=== PATIENT | male | born 1950 | race Hispanic/Latino ===

== ENCOUNTER 2023-12-24 14:17 | Emergency (ER) | payer OTHER ==
[~2023-12-24] VITALS: Ht 172.7 cm; Wt 68.0 kg
[~2023-12-24 14:17] MED LIST: AMLO5TAB4 PO; AMOX1TAB16 PO; FERR324T4 PO; PANT20TA18 PO
[2023-12-24 15:41] LABS: BASOPHILS # (AUTO) 0.03 K/uL (0.00-0.20); BASOPHILS % (AUTO) 0.3 % (0.0-5.0); EOSINOPHILS # (AUTO) 0.05 K/uL (0.00-0.70); EOSINOPHILS % (AUTO) 0.5 % (0.0-8.0); IMMATURE GRANULOCYTE ABSOLUTE 0.03 K/uL (0-1); LYMPHOCYTES % (AUTO) 11.1 % (21.0-51.0); MEAN CORPUSCULAR HGB CONC 33.3 g/dL (32.0-36.0); MONOCYTES # (AUTO) 0.7 K/uL (0.1-1.0); MONOCYTES % (AUTO) 7.6 % (3.0-13.0); NEUTROPHILS # (AUTO) 7.4 K/uL (1.8-7.7); NEUTROPHILS % (AUTO) 80.2 % (40.0-77.0); PLATELET COUNT (AUTO) 214 K/uL (130-400); RED BLOOD CELL COUNT(AUTO) 3.45 MIL/uL (4.50-6.20); WHITE BLOOD COUNT (AUTO) 9.2 K/uL (4.8-10.8)
[2023-12-24 15:55] LABS: CREATININE 0.8 mg/dL (0.5-1.3)
[2023-12-24 15:59] LABS: POTASSIUM 2.5 mmol/L (3.5-5.1)
[2023-12-24] MEDS ORDERED: POTA-192 PO (16:44)
[2023-12-24] MEDS: POTASSIUM CHLORIDE 10% ELIXIR 20 MEQ/15 ML UDCUP PO ONE (17:34)
[2023-12-24] MEDS: POTASSIUM CHLORIDE IV ONE (19:36)
[2023-12-24] MEDS: [UNRECOGNIZED DRUG - OTHER] IV ONE (19:36)
[2023-12-24 22:06] LABS: CREATININE 0.6 mg/dL (0.5-1.3); POTASSIUM 3.3 mmol/L (3.5-5.1)
[2023-12-24 22:46] VITALS: BP 148/68; PULSE 93; RESP 16; O2SAT 100
== END 2023-12-24 23:52 | disposition home or self-care (01) ==
LOC: EDH 14:17
DX: E87.6 Hypokalemia (principal); I10 Essential (primary) hypertension; Z79.899 Other long term (current) drug therapy
CPT/HCPCS: 99284; 96374; 80048 ×2; 85025; 36415; 93005; J7030 ×2; J3480 ×2